=== PATIENT | female | born 1995 | race Hispanic/Latino ===

== ENCOUNTER 2017-06-15 21:47 | Outpatient (CLI) | payer OTHER | END 2017-06-15 23:10 | disposition home or self-care (01) | LOC: M LDO 21:47 | DX: O99.89 Other specified diseases and conditions complicating pregnancy, childbirth and the puerperium (principal); R07.9 Chest pain, unspecified; R06.00 Dyspnea, unspecified; Z87.59 Personal history of other complications of pregnancy, childbirth and the puerperium; N39.0 Urinary tract infection, site not specified; B96.20 Unspecified Escherichia coli [E. coli] as the cause of diseases classified elsewhere; Z3A.34 34 weeks gestation of pregnancy; Z09 Encounter for follow-up examination after completed treatment for conditions other than malignant neoplasm | CPT/HCPCS: 59025 ==

== ENCOUNTER 2017-07-24 22:17 | Outpatient (CLI) | payer OTHER | END 2017-07-24 23:25 | disposition home or self-care (01) | LOC: M LDO 22:17 | DX: O47.1 False labor at or after 37 completed weeks of gestation (principal); O99.613 Diseases of the digestive system complicating pregnancy, third trimester; K21.9 Gastro-esophageal reflux disease without esophagitis; Z3A.39 39 weeks gestation of pregnancy | CPT/HCPCS: 59025 ==

== ENCOUNTER 2017-07-25 07:09 | Inpatient (IN) | payer OTHER ==
[2017-07-25] MEDS: LR 1,000 ML IV (08:11)
[2017-07-25 08:27] LABS: HEMATOCRIT 36.5 % (36.0-47.0); HEMOGLOBIN 11.9 g/dl (12.0-16.0); MEAN CORPUSCULAR HEMOGLOBIN 25.6 pg (27.0-33.0); MEAN CORPUSCULAR HGB CONC 32.6 g/dl (32.0-36.5); MEAN CORPUSCULAR VOLUME 78.7 fl (80.0-96.0); PLATELET COUNT, AUTOMATED 408 10^3/uL (150-450); RED BLOOD COUNT 4.64 10^6/uL (4.00-5.40); RED CELL DISTRIBUTION WIDTH 14.3 % (11.5-14.5)
[2017-07-25] MEDS: LACTATED RINGER'S 1000 ML IV ×2 (11:43→13:36)
[2017-07-25] MEDS ORDERED: FENTANYL 2MCG/ML ROPIVACAINE 0.2% IN 0.9% NACL 200ML IVBAG As Ordered (11:48)
[2017-07-25] MEDS ORDERED: ePHEDrine SULFATE 25 MG/5 ML(5MG/ML) SYRINGE As Ordered (12:49)
[2017-07-25] MEDS ORDERED: EPIDURAL/PCA KEYS XX (13:15)
[2017-07-25] MEDS ORDERED: EPIDURAL COMMENT XX (13:15)
[2017-07-25] MEDS ORDERED: ONDANSETRON 4MG/2ML VIAL (J2405) IV (13:15)
[2017-07-25] MEDS ORDERED: FENTANYL/ROPIVACAINE/NACL BAG 200 ML EPIDURAL (13:15)
[2017-07-25] MEDS ORDERED: diphenhydrAMINE INJ 50MG/ML VIAL (J1200) IV (13:15)
[2017-07-25] MEDS ORDERED: ePHEDrine SULFATE 25 MG/5 ML(5MG/ML) SYRINGE IV (13:15)
[2017-07-25] MEDS ORDERED: NALOXONE INJ 0.4 MG/1 ML VIAL (J2310) IV (13:15)
[2017-07-25] MEDS ORDERED: REFRIGERATOR IV KEYS XX (13:15)
[2017-07-25] MEDS ORDERED: ePHEDrine INJ 50 MG/ML VIAL IV (13:31)
[2017-07-25] MEDS ORDERED: LR 1,000 ML IV (19:16)
[2017-07-25] MEDS: OXYTOCIN DRIP 30 UNITS in APPROPRIATE DILUENT 1 EA IV (19:39)
[2017-07-25] MEDS: DOCUSATE SODIUM 100 MG CAP PO (21:00)
[2017-07-25] MEDS ORDERED: AMPICILLIN 2 GM VIAL As Ordered (23:27)
[2017-07-25] MEDS ORDERED: UNASYN 3 GM VIAL As Ordered (23:51)
[2017-07-25] MEDS ORDERED: BICITRA 30ML SOLN UDC As Ordered (23:52)
[2017-07-25] MEDS ORDERED: OXYTOCIN INJ 10 UNITS/ML VIAL (J2590) As Ordered ×2 (23:56)
[2017-07-25] MEDS ORDERED: LIDOCAINE 2% W/EPIN INJ 20ML **PRES FREE As Ordered (23:58)
[2017-07-26] MEDS: AMPICILLIN SOD 2 GM in D5W MINI-BAG PLUS 100 ML IV
[2017-07-26] MEDS ORDERED: SODIUM BICARBONATE 8.4% INJ 50 ML SYRINGE As Ordered (00:01)
[2017-07-26] MEDS: BICITRA 30ML SOLN UDC PO (00:07)
[2017-07-26] MEDS ORDERED: ceFAZolin 1GM INJ (J0690 PER 500MG) As Ordered ×2 (00:26→00:30)
[2017-07-26] MEDS ORDERED: ONDANSETRON 4MG/2ML VIAL (J2405) As Ordered (00:33)
[2017-07-26] MEDS ORDERED: MORPHINE PRES-FREE INJ 10 MG/10 ML VIAL (J2274) As Ordered (00:47)
[2017-07-26] MEDS ORDERED: KETOROLAC 60 MG/2 ML VIAL (J1885) As Ordered (00:57)
[2017-07-26] MEDS ORDERED: GENTAMICIN 400 MG in D5W 100 ML IV (01:00)
[2017-07-26] MEDS ORDERED: PHENYLephrine HCL 500 MCG/5 ML (100MCG/ML) SYRINGE (J2370) As Ordered (01:01)
[2017-07-26] MEDS: LR 1,000 ML IV ×3 (01:27→10:27)
[2017-07-26] MEDS ORDERED: METOCLOPRAMIDE INJ 10MG/2ML VIAL (J2765) IV (01:30)
[2017-07-26] MEDS ORDERED: MEASLES,MUMPS,RUBELLA VACCINE INJ (MMR-II) (90707) SC (01:30)
[2017-07-26] MEDS ORDERED: RHOGAM 300 MCG (1500 IU) INJ (J2790) IM (01:30)
[2017-07-26] MEDS ORDERED: PERCOCET 5MG/325MG TAB PO ×2 (01:30→01:45)
[2017-07-26] MEDS ORDERED: fentaNYL 100 MCG/2 ML INJECTION (J3010) As Ordered (01:31)
[2017-07-26] MEDS ORDERED: NALBUPHINE HCL 10 MG/ML AMP (J2300) IV (01:45)
[2017-07-26] MEDS ORDERED: ONDANSETRON 4MG/2ML VIAL (J2405) IV (01:45)
[2017-07-26] MEDS ORDERED: fentaNYL 100 MCG/2 ML INJECTION (J3010) IV (01:45)
[2017-07-26] MEDS ORDERED: MEPERIDINE INJ 25 MG/ML VIAL (J2175) IV (01:45)
[2017-07-26] MEDS: OXYTOCIN DRIP 30 UNITS in APPROPRIATE DILUENT 1 EA IV (01:59)
[2017-07-26] MEDS: CLINDAMYCIN 900 MG in APPROPRIATE DILUENT 1 EA IV ×3 (02:00→17:04)
[2017-07-26] MEDS: raNITIdine SYRUP 150 MG/10 ML UDC PO ×2 (02:00→10:04)
[2017-07-26 02:21] LABS: CORD GAS ABE V -10.2; CORD GAS HCO3 V 20.5 MEQ/L; CORD GAS O2 SAT V 36.4 %; CORD GAS PCO2 V 65.6 mmHg; CORD GAS PH V 7.112 UNITS; CORD GAS PO2 V 23.6 mmHg; CORD GAS SBC V 15.3 MEQ/L; CORD GAS TCO2 V 22.5 MEQ/L
[2017-07-26 02:28] LABS: CORD GAS ABE A -10.9; CORD GAS HCO3 A 20.5 MEQ/L; CORD GAS O2 SAT A < 15.0 %; CORD GAS PCO2 A 72.1 mmHg; CORD GAS PH A 7.071 UNITS; CORD GAS TCO2 A 22.7 MEQ/L
[2017-07-26] MEDS: AMPICILLIN SOD/SULBACTAM SOD 3 GM in D5W MINI-BAG PLUS 100 ML IV ×4 (06:00→23:50)
[2017-07-26] MEDS: KETOROLAC 30 MG/ML VIAL (J1885) IV ×3 (06:45→18:23)
[2017-07-26] MEDS: PRENATAL VITAMINS CHEWABLE TABLET PO (09:08)
[2017-07-26] MEDS: DOCUSATE SODIUM 100 MG CAP PO ×2 (10:04→21:29)
[2017-07-26] MEDS: PERCOCET 5MG/325MG TAB PO (17:06)
[2017-07-27] MEDS: KETOROLAC 30 MG/ML VIAL (J1885) IV (00:38)
[2017-07-27] MEDS: CLINDAMYCIN 900 MG in APPROPRIATE DILUENT 1 EA IV ×3 (02:00→17:29)
[2017-07-27] MEDS: PERCOCET 5MG/325MG TAB PO ×2 (05:58→16:08)
[2017-07-27] MEDS: AMPICILLIN SOD/SULBACTAM SOD 3 GM in D5W MINI-BAG PLUS 100 ML IV ×2 (06:27→12:54)
[2017-07-27 07:14] LABS: HEMATOCRIT 22.3 % (36.0-47.0); MEAN CORPUSCULAR HEMOGLOBIN 25.8 pg (27.0-33.0); MEAN CORPUSCULAR HGB CONC 32.7 g/dl (32.0-36.5); MEAN CORPUSCULAR VOLUME 78.8 fl (80.0-96.0); PLATELET COUNT, AUTOMATED 336 10^3/uL (150-450); RED BLOOD COUNT 2.83 10^6/uL (4.00-5.40); RED CELL DISTRIBUTION WIDTH 14.5 % (11.5-14.5); WHITE BLOOD COUNT 16.1 10^3/uL (4.0-10.0)
[2017-07-27 07:35] LABS: HEMOGLOBIN 7.3 g/dl (12.0-16.0)
[2017-07-27] MEDS: raNITIdine SYRUP 150 MG/10 ML UDC PO (09:41)
[2017-07-27] MEDS: DOCUSATE SODIUM 100 MG CAP PO ×2 (09:41→21:28)
[2017-07-27] MEDS: PRENATAL VITAMINS CHEWABLE TABLET PO (09:42)
[2017-07-27] MEDS: IBUPROFEN 800 MG TAB PO ×2 (09:43→16:07)
[2017-07-28] MEDS: IBUPROFEN 800 MG TAB PO ×2 (01:26→07:53)
[2017-07-28] MEDS: raNITIdine SYRUP 150 MG/10 ML UDC PO (07:52)
[2017-07-28] MEDS: DOCUSATE SODIUM 100 MG CAP PO (07:52)
[2017-07-28] MEDS: PRENATAL VITAMINS CHEWABLE TABLET PO (07:52)
== END 2017-07-28 10:45 | disposition home or self-care (01) | DRG 766 ==
LOC: M LDO 07:09 → M OBS 07-26 03:03 → M LDI 08:00
PROVIDERS: Obstetrics & Gynecology
PROC: 10D00Z1 Extraction of Products of Conception, Low, Open Approach (ICD-10-PCS; principal; 2017-07-26 00:21)
DX: O76 Abnormality in fetal heart rate and rhythm complicating labor and delivery (principal); Z37.0 Single live birth; Z3A.39 39 weeks gestation of pregnancy; O62.0 Primary inadequate contractions; O64.0XX0 Obstructed labor due to incomplete rotation of fetal head, not applicable or unspecified

== ENCOUNTER 2017-11-18 19:28 | Emergency (ER) | payer OTHER ==
[2017-11-18] MEDS: MAALOX 30 ML SUSP *UDC PO (22:05)
[2017-11-18] MEDS: LIDOCAINE VISCOUS 2% SOLN 15ML UDC PO (22:05)
[2017-11-18 22:27] LABS: BASO # 0.1 10^3/uL (0.0-0.2); EOS # 0.2 10^3/uL (0.0-0.50); EOS % 3.3 % (0.0-3.0); HEMATOCRIT 34.1 % (36.0-47.0); IMMATURE GRANULOCYTE % 0.2 % (0-3.0); LYMPH % 34.6 % (24.0-44.0); MEAN CORPUSCULAR HEMOGLOBIN 25.5 pg (27.0-33.0); MEAN CORPUSCULAR HGB CONC 32.3 g/dl (32.0-36.5); MEAN CORPUSCULAR VOLUME 79.1 fl (80.0-96.0); MONO # 0.4 10^3/uL (0.0-0.8); MONO % 7.2 % (0.0-5.0); NEUTROPHILS # 3.1 10^3/uL (1.8-7.7); NEUTROPHILS % 53.7 % (36.0-66.0); PLATELET COUNT, AUTOMATED 474 10^3/uL (150-450); RED BLOOD COUNT 4.31 10^6/uL (4.00-5.40); RED CELL DISTRIBUTION WIDTH 17.1 % (11.5-14.5); WHITE BLOOD COUNT 5.7 10^3/uL (4.0-10.0)
[2017-11-18 22:43] LABS: ALBUMIN 3.9 GM/DL (3.2-5.2); ALBUMIN/GLOBULIN RATIO 1.08 (1.00-1.93); ALKALINE PHOSPHATASE 489 U/L (45-117); ALT/SGPT 1332 U/L (12-78); ANION GAP 7 MEQ/L (8-16); AST/SGOT 1014 U/L (7-37); BILIRUBIN,DIRECT 0.3 MG/DL (0.0-0.2); BILIRUBIN,TOTAL 0.6 MG/DL (0.2-1.0); BLOOD UREA NITROGEN 18 MG/DL (7-18); CALCIUM LEVEL 8.4 MG/DL (8.5-10.1); CARBON DIOXIDE LEVEL 27 MEQ/L (21-32); CHLORIDE LEVEL 111 MEQ/L (98-107); CREATININE FOR GFR 0.67 MG/DL (0.55-1.30); GLOMERULAR FILTRATION RATE > 60.0 (>60); GLUCOSE, FASTING 98 MG/DL (70-100); LIPASE 252 U/L (73-393); POTASSIUM SERUM 3.8 MEQ/L (3.5-5.1); SODIUM LEVEL 145 MEQ/L (136-145); TOTAL PROTEIN 7.5 GM/DL (6.4-8.2)
== END 2017-11-19 00:32 | disposition home or self-care (01) ==
LOC: M ED 19:28
DX: K80.50 Calculus of bile duct without cholangitis or cholecystitis without obstruction (principal); R94.5 Abnormal results of liver function studies; N28.1 Cyst of kidney, acquired
CPT/HCPCS: 76705

== ENCOUNTER 2018-02-15 19:44 | Emergency (ER) | payer OTHER ==
[2018-02-15 20:33] LABS: KETONE, URINE AUTO RFX NEGATIVE (NEGATIVE); MUCUS, URINE RFX MODERATE (NEGATIVE); NITRITE, URINE AUTO RFX NEGATIVE (NEGATIVE); RBC, URINE AUTO RFX 8 /HPF (0-3); SPECIFIC GRAVITY UR AUTO RFX 1.027 (1.002-1.035); SQUAM EPITHELIAL CELL UR AURFX 4 /HPF (0-6); WBC, URINE AUTO RFX 2 /HPF (0-3)
[2018-02-15 20:41] LABS: LEUKOCYTE ESTERASE UR AUTO RFX TRACE (NEGATIVE)
[2018-02-15] MEDS ORDERED: MORPHINE 4 MG/ML 1ML VIAL/SYRINGE (J2270) IV (21:00)
[2018-02-15 21:11] LABS: BASO # 0.1 10^3/uL (0.0-0.2); BASO % 0.5 % (0.0-1.0); EOS # 0.2 10^3/uL (0.0-0.50); EOS % 1.5 % (0.0-3.0); HEMATOCRIT 36.4 % (36.0-47.0); IMMATURE GRANULOCYTE % 0.3 % (0-3.0); LYMPH # 2.8 10^3/uL (1.5-6.5); LYMPH % 25.6 % (24.0-44.0); MEAN CORPUSCULAR HEMOGLOBIN 27.9 pg (27.0-33.0); MEAN CORPUSCULAR VOLUME 84.7 fl (80.0-96.0); MONO # 0.8 10^3/uL (0.0-0.8); MONO % 6.9 % (0.0-5.0); NEUTROPHILS # 7.1 10^3/uL (1.8-7.7); NEUTROPHILS % 65.2 % (36.0-66.0); PLATELET COUNT, AUTOMATED 401 10^3/uL (150-450); RED CELL DISTRIBUTION WIDTH 14.3 % (11.5-14.5); WHITE BLOOD COUNT 10.8 10^3/uL (4.0-10.0)
[2018-02-15 21:27] LABS: ALBUMIN 4.3 GM/DL (3.2-5.2); ALBUMIN/GLOBULIN RATIO 1.05 (1.00-1.93); ALKALINE PHOSPHATASE 117 U/L (45-117); ALT/SGPT 123 U/L (12-78); AMYLASE 44 U/L (25-115); ANION GAP 9 MEQ/L (8-16); AST/SGOT 136 U/L (7-37); BILIRUBIN,DIRECT 0.1 MG/DL (0.0-0.2); BILIRUBIN,TOTAL 0.3 MG/DL (0.2-1.0); BLOOD UREA NITROGEN 14 MG/DL (7-18); CALCIUM LEVEL 9.2 MG/DL (8.5-10.1); CARBON DIOXIDE LEVEL 24 MEQ/L (21-32); CHLORIDE LEVEL 107 MEQ/L (98-107); GLOMERULAR FILTRATION RATE > 60.0 (>60); GLUCOSE, FASTING 88 MG/DL (70-100); HCG, SERUM QUANTITATIVE 26532 MIU/ML; LIPASE 350 U/L (73-393); POTASSIUM SERUM 3.5 MEQ/L (3.5-5.1); SODIUM LEVEL 140 MEQ/L (136-145); TOTAL PROTEIN 8.4 GM/DL (6.4-8.2)
[2018-02-15] MEDS: METOCLOPRAMIDE INJ 10MG/2ML VIAL (J2765) IV (21:40)
[2018-02-15] MEDS: NS 1,000 ML IV (21:40)
== END 2018-02-15 23:20 | disposition home or self-care (01) ==
LOC: M ED 19:44
DX: O99.611 Diseases of the digestive system complicating pregnancy, first trimester (principal); K80.70 Calculus of gallbladder and bile duct without cholecystitis without obstruction; Z87.448 Personal history of other diseases of urinary system; Z3A.08 8 weeks gestation of pregnancy
CPT/HCPCS: J2765

== ENCOUNTER 2018-09-26 09:16 | Inpatient (IN) | payer OTHER ==
[~2018-09-26] VITALS: Ht 149.9 cm; Wt 75.4 kg
[2018-09-26] VITALS (10 sets, daily range): BP systolic 98–132; BP diastolic 55–85
[~2018-09-26 09:16] MED LIST: ACTI300C PO; COLA100C5 PO; IBUP-1114 PO; OXYC1TAB23 PO; PERC5TAB12 PO; PERCOCET PO; PRENTAB45 PO; PRENTAB9 PO; RANI15TA PO; ZANT150T15 PO; ZOFR4TAB14 PO
[2018-09-26] MEDS ORDERED: PENICILLIN G POTASSIUM IV 5 MU in D5W MINI-BAG PLUS 100 ML IV STA (10:19)
[2018-09-26] MEDS ORDERED: LACTATED RINGER'S 1000 ML IV ONE (10:30)
[2018-09-26 10:43] LABS: HEMOGLOBIN 10.5 g/dl (12.0-15.5); MEAN CORPUSCULAR HEMOGLOBIN 23.6 pg (27.0-33.0); MEAN CORPUSCULAR HGB CONC 31.8 g/dl (32.0-36.5); MEAN CORPUSCULAR VOLUME 74.2 fl (80.0-96.0); PLATELET COUNT, AUTOMATED 387 10^3/uL (150-450); RED BLOOD COUNT 4.45 10^6/uL (4.00-5.40); WHITE BLOOD COUNT 12.4 10^3/uL (4.0-10.0)
--- NOTE | 2018-09-26 12:38 | HPE ---
DATE OF ADMISSION: 09/26/2018 This lady is a 23-year-old, 2, para 1, last menstrual period (LMP) 12/18/2017, estimated date of confinement (EDC) 10/10/2018, at 31 weeks of gestation with a history of active labor. She is booked for elective repeat section on 10/03/2018. Now she is considering trial of labor after (TOLAC). Her risk factors is she had a short interval . She has just recently delivered July of 2017. She suffers from chronic anemia documented by reading the last operative note CPD for nonreassuring heart and an impacted head. She recently had her gallbladder removed with stones. She has anemia and her Group B streptococcus (GBS) status unknown. Labs are A positive, HIV negative, hepatitis negative, rapid plasma reagin (RPR) negative, rubella immune. Varicella immune. Pap normal. Urine alpha strep was noted. Gonorrhea and chlamydia negative. 1-hour glucose was 99. GBS is pending. Her past history in July 2017 got to 6 cm dilated, chorioamnionitis, nonreassuring heart, primary section with an impacted head. The baby was 8 pounds 1 ounce. She was treated with at this time Unasyn and Ancef because of the infection. On examination, she appears distressed. Symphysis fundus height is 40. Duane keloids are noted. Vertex presenting. Nothing is in the pelvis. It is about a -4, bulging membranes, 5 cm and it appears to be quite an unstable lie, 80% effaced. Blood pressure 132/85, respirations 18, pulse 93, temperature 97.9. Urine is 1.015, pH 6 and a trace protein. The rest of the examination unremarkable. Normocephalic, atraumatic. Neck full range of motion. Pupils equal and reactive to light. Distal pulses symmetric. No evidence of deep venous thrombosis (DVT), pulmonary embolism (PE) or superficial phlebitis. Chest is clear bilateral to bases. No wheezes or rhonchi. No costovertebral angle (CVA) tenderness. Abdomen is soft. Four quadrant bowel sounds are noted. Symphysis fundus height is 40. Keloid formation is noted. Low transverse incision was noted. She has no rashes, lesions or pruritus. Does have tattoos. No myalgia or joint pain or arthralgia. No complaint cough, wheeze, shortness of breath or dyspnea on exertion. Not bleeding. Neuro complete. No incontinency, urgency or frequency. No nausea, vomiting, diarrhea or constipation. No diabetic issues. [employer] issues negative. Past medical and surgical history is noncontributory. Family history noncontributory. She does not smoke, drink, abuse drugs. She is to a soldier, and there is no domestic violence. We had discussed the fact that she was electively booked for repeat section on . She had in her mind that if she went into active labor before that she would want to have a trial of labor. After discussing with her the risks of TOLAC, ie, short interval less than a year, history of chorioamnionitis, failure to descend, failure to dilate beyond 6 cm and an impacted head in the pelvis when she had a primary section does not sadie well for a successful TOLAC. We discussed the risks of vaginal delivery, which is the baby through the vagina, possibly use of forceps or vacuum or devices if needed for maternal or indications. These are devices that can assist with vaginal delivery when normal pushing efforts cannot be achieved on their own or when delivery is needed in an emergency for baby's well-being, medications used to augment or induce labor, to achieve vaginal delivery an episiotomy may be required. She also may be required significant repair of lacerations after spontaneous delivery or episiotomy, and also an emergency section may be required because the baby needs to delivered imminently as if proceeding to vaginal delivery may be not in the baby's best interest. She had a previous section because of a nonreassuring heart strip. The other risks of section are hemorrhage, infection, perforation, , reoperation, trauma to bladder, bowel or other structures, remote hysterectomy, remote possibility of blood transfusion, remote possibility of laceration and/or admission to the intensive care unit (NICU). After discussing the risks and benefits of both, the patient is still undecided, still michael. We will continue with appropriate antibiotic therapy for GBS and await her decision.
[2018-09-26] MEDS: LR 1,000 ML IV SCH ×2 (12:55→22:40)
[2018-09-26] MEDS ORDERED: BICITRA 30ML SOLN UDC PO ONE (13:00)
[2018-09-26] MEDS ORDERED: ACETAMINOPHEN 650 MG SUPP PR ONE (13:00)
[2018-09-26] MEDS ORDERED: BUPIVACAINE HCL 0.25% 10 ML VIAL SC ONE (13:00)
[2018-09-26] MEDS ORDERED: AZITHROMYCIN INJ 500 MG, VIAL MATE ADAPTER 1 EACH in D5W 250 ML IV ONE (13:00)
[2018-09-26] MEDS ORDERED: OXYTOCIN INJ 10 UNITS/ML VIAL (J2590) As Ordered ONE (14:37)
[2018-09-26] MEDS ORDERED: MORPHINE PRES-FREE INJ 10 MG/10 ML VIAL (J2274) As Ordered ONE (14:37)
[2018-09-26] MEDS ORDERED: BUPIVACAINE/DEXTROSE 0.75% 2 ML AMP As Ordered ONE (14:41)
[2018-09-26] MEDS ORDERED: NALOXONE INJ 0.4 MG/1 ML VIAL (J2310) IV PRN ×2 (14:59)
[2018-09-26] MEDS ORDERED: diphenhydrAMINE INJ 50MG/ML VIAL (J1200) IV PRN (14:59)
[2018-09-26] MEDS ORDERED: NALBUPHINE HCL 10 MG/ML AMP (J2300) IV PRN ×2 (14:59→16:45)
[2018-09-26] MEDS ORDERED: ONDANSETRON 4MG/2ML VIAL (J2405) IV PRN ×2 (14:59→16:45)
[2018-09-26] MEDS ORDERED: PENICILLIN G POTASSIUM IV 2.5 MU in APPROPRIATE DILUENT 1 EA IV SCH (15:00)
[2018-09-26] MEDS ORDERED: PHENYLephrine HCL 500 MCG/5 ML (100MCG/ML) SYRINGE (J2370) As Ordered ONE (15:02)
[2018-09-26] MEDS ORDERED: FERR325T18 PO (15:17)
[2018-09-26] MEDS ORDERED: VITA500T9 PO (15:17)
[2018-09-26] MEDS ORDERED: DOCU100C16 PO (15:17)
[2018-09-26] MEDS ORDERED: dexameTHASONE 4 MG/ML 1ML VIAL (J1100) As Ordered ONE (15:41)
[2018-09-26] MEDS ORDERED: ONDANSETRON 4MG/2ML VIAL (J2405) As Ordered ONE (15:41)
[2018-09-26] MEDS ORDERED: KETOROLAC 60 MG/2 ML VIAL (J1885) As Ordered ONE (15:41)
[2018-09-26 15:43] LABS: CORD GAS ABE A -2.6; CORD GAS HCO3 A 25.1 MEQ/L; CORD GAS O2 SAT A 35.9 %; CORD GAS PCO2 A 55.5 mmHg; CORD GAS PH A 7.274 UNITS; CORD GAS PO2 A 18.8 mmHg; CORD GAS SBC A 20.9 MEQ/L; CORD GAS TCO2 A 26.8 MEQ/L
[2018-09-26 15:44] LABS: CORD GAS ABE V -3.6; CORD GAS HCO3 V 21.3 MEQ/L; CORD GAS O2 SAT V 87.6 %; CORD GAS PCO2 V 38.4 mmHg; CORD GAS PH V 7.362 UNITS; CORD GAS SBC V 21.2 MEQ/L; CORD GAS TCO2 V 22.5 MEQ/L
[2018-09-26] MEDS ORDERED: fentaNYL 100 MCG/2 ML INJECTION (J3010) IV PRN (16:45)
[2018-09-26] MEDS ORDERED: OXYTOCIN DRIP 30 UNITS in APPROPRIATE DILUENT 1 EA IV SCH (17:27)
[2018-09-26] MEDS ORDERED: ANUSOL HC CREAM 30GM TOP PRN (17:30)
[2018-09-26] MEDS ORDERED: OXYTOCIN INJ 10 UNITS/ML VIAL (J2590) IV ONE (17:30)
[2018-09-26] MEDS ORDERED: MEASLES,MUMPS,RUBELLA VACCINE INJ (MMR-II) (90707) SC SCH (17:30)
[2018-09-26] MEDS ORDERED: RHOGAM 300 MCG (1500 IU) INJ (J2790) IM SCH (17:30)
[2018-09-26] MEDS ORDERED: MOM 30ML SUSPENSION UDC PO PRN (17:30)
[2018-09-26] MEDS ORDERED: PERCOCET 5MG/325MG TAB PO PRN (17:30)
[2018-09-26] MEDS ORDERED: DOCUSATE SODIUM 100 MG CAP PO PRN (17:30)
[2018-09-26] MEDS ORDERED: OXYTOCIN 30 UNITS IN 0.9% NaCl 500ML IV BAG (J2590) As Ordered ONE (17:43)
--- NOTE | 2018-09-26 18:18 | IPN ---
DATE: 09/26/2018 TIME: 1300 hours. This lady requested a recheck and assessment of her progress in labor in order to determine whether or not she would accept to have a repeat section. On her initial examination when she came in, she had a category 1 strip, -4 station, 5 cm, bulging membranes. Head was not engaged in the pelvis. She was having moderate contractions with moderate variability. She was prophylactically treated for Group B streptococcus (GBS), and had adequate contractions. We reassessed her at 1300 hours. Blood pressure was 117/69, respirations 18, pulse 81, temperature is 98.6. Pelvic examination was still unchanged. At that point, the patient made a decision to go ahead and have a repeat section. Again, we reviewed the risks and benefits of section, including hemorrhage, infection, perforation, , reoperation, traumatic injury to the uterus, bladder, other organs in the vicinity, remote possibility of laceration and admission to the intensive care unit (NICU). The patient expressed understanding about the risks and benefits, signed a consent form. We now await the arrival of anesthesia. Neonatology was informed. Our presumed diagnosis is repeat section, cephalopelvic disproportion, macrosomia, anemia, Group B streptococcus (GBS) status unknown, short interval .
[2018-09-26] MEDS: METHYLERGONOVINE MALEATE 0.2 MG TAB PO SCH ×2 (18:45→23:35)
[2018-09-26] MEDS: PERCOCET 5MG/325MG TAB PO PRN (18:45)
[2018-09-26] MEDS: METOCLOPRAMIDE INJ 10MG/2ML VIAL (J2765) IV PRN (22:41)
[2018-09-26] MEDS: KETOROLAC 30 MG/ML VIAL (J1885) IV SCH (23:35)
[2018-09-27 02:15] VITALS: BP 105/58
[2018-09-27] MEDS: METOCLOPRAMIDE INJ 10MG/2ML VIAL (J2765) IV PRN (05:04)
[2018-09-27] MEDS: METHYLERGONOVINE MALEATE 0.2 MG TAB PO SCH ×2 (05:04→11:34)
[2018-09-27] MEDS: KETOROLAC 30 MG/ML VIAL (J1885) IV SCH ×2 (05:06→11:34)
[2018-09-27] MEDS: LR 1,000 ML IV SCH (05:49)
[2018-09-27 06:00] VITALS: BP 95/51
[2018-09-27 07:21] LABS: HEMATOCRIT 24.9 % (36.0-47.0); MEAN CORPUSCULAR HEMOGLOBIN 23.4 pg (27.0-33.0); MEAN CORPUSCULAR HGB CONC 31.3 g/dl (32.0-36.5); MEAN CORPUSCULAR VOLUME 74.8 fl (80.0-96.0); PLATELET COUNT, AUTOMATED 291 10^3/uL (150-450); RED BLOOD COUNT 3.33 10^6/uL (4.00-5.40); WHITE BLOOD COUNT 15.1 10^3/uL (4.0-10.0)
[2018-09-27 08:18] LABS: HEMOGLOBIN 7.8 g/dl (12.0-15.5)
--- NOTE | 2018-09-27 09:14 | RO ---
DATE OF PROCEDURE: 09/26/2018 PREPROCEDURE DIAGNOSES: Followup pelvis disproportion, active labor, 38 and 3. POSTPROCEDURE DIAGNOSES: Followup pelvis disproportion, active labor, short interval , anemia, asynclitic head, macrosomia. OPERATION PROPOSED: Repeat section. OPERATION PERFORMED: Repeat section. SURGEON: Dr. Stephane Snowden. CANDY BUTCHER: Dr. Luo for extraction, retraction and visualization. ANESTHESIA: Spinal plus local anesthetic for intraperitoneal procedures. ESTIMATED BLOOD LOSS: 500 mL. After adequate anesthesia, prepped, draped in the supine position, Nunez catheter in the bladder draining clear urine. Acetaminophen suppository 1300 mg per rectum. Antibiotics appropriately on board. A low transverse incision was made through the previous Pfannenstiel incision passing through abdominal layers securing hemostasis. It was quite evident that this lady had no tissue planes or identifiable margins. Everything seemed to run into one another. Eventually were able to visualize the fascia extended laterally on both sides and then when we went to open the peritoneal cavity, the bladder was quite distended up anteriorly. We had to go very high anteriorly in order to get into the peritoneal cavity. Once that was done, the bladder was reflected down a very thin segment but there was quite a bit of obstruction from the adipose tissue from the symphysis pubis area. A low transverse incision was made into the uterus. Clear Liqua was obtained, moderate amount. Two loops of core popped out. The head itself was transfixed, it was asynclitic. We tried to rotate it to the OA, to the OP, but being such a large head, it was extremely difficult. We eventually used the vacuum to 25 mmHg, three pulls, three pop offs and eventually were able to extract the baby's head. Dr. Newman in attendance for resuscitation, delivered a live male infant weighing 8 pounds 0 ounces, 3620 grams, of 4, 9 and 9 at one and five minutes respectively and 10 minutes. Arterial pH was 7.27, base excess -2.6, venous pH 7.36, base excess -3.6. The uterus contracted well down under Pitocin. The baby had the cord of loop wrapped around his left leg quite loosely. The placenta was manually removed. Three-vessel cord, membranes and tissues intact. The uterus did contract down well under Pitocin, but deviates off to the left of the patient high up under the splenic area, because of such a prominent sacral promontory that everything is displaced laterally and to the left. The lower segment oversewn in two layers and with good hemostasis we reviewed the ovaries. Tubes appeared to be normal. We evacuated any clots in both gutters and then with instrument and pad count correct, the abdomen was closed, running stitch for the peritoneum, same for the fascia, interrupted for subcu. Dexon 3.0 to the skin, Marcaine 0.25% 10 mL subcutaneously to the skin and spray and Telfa were applied. We expressed a few clots of the uterus. Again the uterus seems to be deviated off to the left. The patient is midline, but this seems to be well contracted. The patient was sent to recovery in good condition.
--- NOTE | 2018-09-27 09:15 | IPN ---
DATE: 09/27/2018 This lady is a 23-year-old 2, now para 2, had a repeat section, came in in active labor, basically she had cephalopelvic disproportion (CPD), short interval , anemia. She had a repeat section, live male , 8 pounds 0 ounces, 3620 grams, scores of 4, 9 and 9 at one, five and ten minutes. Arterial pH 7.29, base excess -2.6, venous pH 7.36, base excess -3.6. On her first day, blood pressure is 95/51, respirations are 18, pulse 75, temperature is 97.6. Her admitting hemoglobin was 10.5, hematocrit 33.0 and platelets were 387. Her day #1 hemoglobin is still pending. The rest of the examination is unremarkable. Normocephalic, atraumatic. Neck: Full range of motion. Pupils equal and reactive to light. Distal pulses are symmetric. No evidence of deep vein thrombosis (DVT), pulmonary embolism (PE), or superficial phlebitis. Chest is clear bilateral bases. No wheezes or rhonchi. No costovertebral angle (CVA) tenderness. Abdomen: Soft, uterus two below. Lochia is moderate. Four quadrant bowel sounds are noted. Incision is clean and dry. She has no rashes, lesions or pruritus. No arthralgia or myalgia. In summary, we have a term gestation in active labor, for repeat section, delivered a live male infant. Plans are for discharge tomorrow with medication, 2-week incision check and 6-week check.
--- NOTE | 2018-09-27 09:18 | IPN ---
DATE OF SERVICE: 09/27/2018 This lady is 2, para 2, was admitted in labor. Was scheduled for repeat section 10/03/2018. She had a repeat section live male 8 pounds 0 ounces, 3620 grams, of 4, 9 and 9. Arterial pH 7.27, base excess -2.6, venous pH 7.36, base excess -3.6. Her risk factors were cephalopelvic disproportion, short interval , anemia in labor. On her first day, her blood pressure is 195/51, respirations 16, pulse 75, temperature 97.6. Her admitting hemoglobin was 10.5, hematocrit 33.0, platelets were 387. Postop day 1 hemoglobin 7.8, hematocrit 24.9 and platelets 291. She is asymptomatic. She is presently voiding well, passing gas. The rest of the examination unremarkable. Normocephalic, atraumatic. Neck: Full range of motions. Pupils equal and reactive to light. Distal pulses symmetric. No evidence of DVT, PE or superficial phlebitis. Chest is clear bilaterally bases, no wheezes or rhonchi. No CVA tenderness. Abdomen: Soft. Uterus two below. Lochia is moderate. Four quadrant bowel sounds are noted. Incision is clean and dry. The patient up and mobile, anxious for home discharge tomorrow. Medication will be dispensed at discharge.
[2018-09-27] MEDS: PRENATAL VITAMINS CHEWABLE TABLET PO SCH (10:18)
[2018-09-27 11:00] VITALS: BP 100/53
[2018-09-27 15:08] VITALS: BP 103/52
[2018-09-27 18:28] VITALS: BP 104/66
[2018-09-27] MEDS: PERCOCET 5MG/325MG TAB PO PRN ×2 (18:55→23:02)
[2018-09-27] MEDS: IBUPROFEN 800 MG TAB PO SCH (19:37)
[2018-09-27 21:54] VITALS: BP 109/60
[2018-09-28 02:07] VITALS: BP 102/55
[2018-09-28] MEDS: IBUPROFEN 800 MG TAB PO SCH ×2 (03:40→11:13)
[2018-09-28] MEDS ORDERED: raNITIdine SYRUP 150 MG/10 ML UDC PO PRN (05:30)
[2018-09-28 06:19] VITALS: BP 99/54
--- NOTE | 2018-09-28 09:16 | IPNPDOC ---
Progress Note Date of Service: Sep 28, 2018 Day#: 2 Progress Note PP/POD 2 SUBJECT: Noris is a 23yo multip s/p uncomplicated RLTCS on 09/26/18 when she presented in labor w/history of prior , doing well day # 2. She has been ambulating and tolerating regular diet. Voiding spontaneously without issue. Breast feeding without issue. Reports lochia is like a light period. Pain is well controlled. No f/c/n/v/CP/SOB. OBJECTIVE: VITAL SIGNS: Within normal limits, afebrile. Abdomen: Fundus firm at U-2. Soft, appropriately tender to palpation with no rebound/guarding. Pfannensteil incision is clean/dry/intact with no erythema/induration/drainage Extremities: no pain with palpation of calves Labs: pre-op H/H 10.5/33 post-op H/H 7.8/24.9 ASSESSMENT: Noris is a 23yo multip s/p uncomplicated RLTCS on 09/26/18 when she presented in labor w/history of prior , doing well day # 2. Vitals within normal limits, afebrile, hemodynamically stable with no evidence of infection. Anemia is asymptomatic. PLAN: 1. Routine post-op/post- care 2. Regular diet 3. Encourage ambulation, use of IS and breast feeding 4. Percocet and motrin prn pain 5. Likely discharge home tomorrow morning Dr. Asha Michel MD VS, I&O, 24H, Fishbone Vital Signs/I&O Vital Signs Date Time Temp Pulse Resp B/P (MAP) Pulse Ox O2 Delivery O2 Flow Rate FiO2 09/28/18 06:19 97.0 85 18 99/54 (69) 97 I&O- Last 24 Hours up to 6 AM 09/28/18 06:00 Output Total 300 ml Balance -300 ml Asha Michel MD Sep 28, 2018 09:16
[2018-09-28 10:37] VITALS: BP 114/71
[2018-09-28] MEDS: PRENATAL VITAMINS CHEWABLE TABLET PO SCH (11:12)
[2018-09-28] MEDS ORDERED: IBUP-1114 PO (11:30)
[2018-09-28] MEDS ORDERED: OXYC1TAB23 PO (11:30)
--- NOTE | 2018-09-28 13:56 | DS.PDOC ---
Discharge Summary General Date of Admission Sep 26, 2018 at 09:58 Date of Discharge [id number] Discharge Summary ADMITTING DIAGNOSES: Prior /labor DISCHARGE DIAGNOSES: Rpt by Dr Snowden HOSPITAL COURSE: Labor. Prior . delivery uncomplicated. course uncomplicated. DISCHARGE MEDICATIONS: Motrin, Lanolin, Percocet, Colace DISCHARGE INSTRUCTIONS: Nothing in the vagina for 6 weeks. No driving for 2 weeks. No bathing for 4 weeks, shower only. F/U in OBGYN clinic in 1-2 weeks for incision check with Dr Snowden and routine follow-up in 6-8 weeks. Sessions Vital Signs/I&Os Vital Signs Date Time Temp Pulse Resp B/P (MAP) Pulse Ox O2 Delivery O2 Flow Rate FiO2 09/28/18 10:37 98.8 83 16 114/71 (85) 99 I&O- Last 24 Hours up to 6 AM 09/28/18 06:00 Output Total 300 ml Balance -300 ml Discharge Medications Scheduled Ascorbic Acid (Vitamin C) 500 Mg Tablet, 500 MG PO DAILY, (Reported) Vit No.129/Iron/Folic ( One Daily Tablet) 1 Tab Tab, 1 TAB PO DAILY, (Reported) Scheduled PRN Docusate Sodium (Docusate Sodium) 100 Mg Capsule, 100 MG PO DAILYPRN PRN for CONSTIPATION, (Reported) Ibuprofen (Ibuprofen) 400 Mg Tablet, 800 MG PO Q8HP PRN for PAIN, (Reported) Oxycodone HCl/Acetaminophen (Oxycodone-Acetaminophen 5-325) 1 Each Tablet, 1 TAB PO Q4HP PRN for MILD PAIN (PS 1-4), (Reported) Oxycodone HCl/Acetaminophen (Oxycodone-Acetaminophen 5-325) 1 Each Tablet, 2 TAB PO Q4HP PRN for MODERATE/SEVERE PAIN (PS 5-10), (Reported) Allergies Coded Allergies: No Known Allergies (Unverified , 02/15/18) SESSIONS,VANDANA Trammell MD Sep 28, 2018 13:56
== END 2018-09-28 12:55 | disposition home or self-care (01) | DRG 773 ==
LOC: M LDO 09:16 → M LDI 09:58 → M OBS 18:22
PROVIDERS: ADMIT Obstetrics & Gynecology; ATTEND Obstetrics & Gynecology
PROC: 10D07Z6 Extraction of Products of Conception, Vacuum, Via Natural or Artificial Opening (ICD-10-PCS; 2018-09-26)
PROC: 10D00Z1 Extraction of Products of Conception, Low, Open Approach (ICD-10-PCS; principal; 2018-09-26 14:47)
DX: O34.211 Maternal care for low transverse scar from previous cesarean delivery (principal); D64.9 Anemia, unspecified; Z37.0 Single live birth; Z3A.38 38 weeks gestation of pregnancy; O99.02 Anemia complicating childbirth; O33.1 Maternal care for disproportion due to generally contracted pelvis